=== PATIENT | male | born 2005 | race Caucasian/White ===

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

== ENCOUNTER 2024-12-11 21:04 | Emergency (ER) | payer MEDICAID, OTHER ==
[~2024-12-11] VITALS: Ht 180.3 cm; Wt 64.5 kg
[~2024-12-11 21:04] MED LIST: RISP-31 PO; SERT-439 PO
[2024-12-11 21:18] VITALS: BP 102/57; PULSE 92; RESP 14; TEMP 98; O2SAT 100
== END 2024-12-11 23:28 | disposition left against medical advice (07) ==
LOC: EMS 21:04
DX: R30.0 Dysuria (principal); Z53.21 Procedure and treatment not carried out due to patient leaving prior to being seen by health care provider

== ENCOUNTER 2025-08-20 00:23 | Emergency (ER) | payer OTHER ==
[~2025-08-20] VITALS: Ht 177.8 cm; Wt 64.5 kg
[2025-08-20 00:30] VITALS: BP 93/66; PULSE 85; RESP 16; TEMP 97.7; O2SAT 98
== END 2025-08-20 06:16 | disposition home or self-care (01) ==
LOC: EMS 00:23
DX: F10.129 Alcohol abuse with intoxication, unspecified (principal); R10.84 Generalized abdominal pain; J45.909 Unspecified asthma, uncomplicated; Z79.899 Other long term (current) drug therapy; Y90.9 Presence of alcohol in blood, level not specified
CPT/HCPCS: 99283; Z7502

== ENCOUNTER 2025-08-21 06:48 | Emergency (ER) | payer OTHER ==
[~2025-08-21] VITALS: Ht 180.3 cm; Wt 65.9 kg
[2025-08-21 06:59] VITALS: TEMP 97.9
[2025-08-21 09:04] LABS: PH,URINE DRUG SCREEN 7.0 (5.0-8.0)
[2025-08-21 09:09] LABS: ALCOHOL, URINE DRUG SCREEN NEGATIVE (NEGATIVE); AMPHET/METH SCREEN,URINE NEGATIVE (NEGATIVE); BARBITURATE SCREEN, URINE NEGATIVE (NEGATIVE); CANNABINOID SCREEN,URINE NEGATIVE (NEGATIVE); COCAINE SCREEN,URINE NEGATIVE (NEGATIVE); METHADONE SCREEN, URINE NEGATIVE (NEGATIVE)
[2025-08-21 11:05] VITALS: BP 100/70; PULSE 62; RESP 17; O2SAT 98
== END 2025-08-21 11:06 | disposition home or self-care (01) ==
LOC: EMS 06:49
DX: F12.10 Cannabis abuse, uncomplicated (principal); J45.909 Unspecified asthma, uncomplicated; Z00.00 Encounter for general adult medical examination without abnormal findings
CPT/HCPCS: 99283; 36415; 80307; G0480

== ENCOUNTER 2025-08-25 18:22 | Emergency (ER) | payer OTHER ==
[~2025-08-25] VITALS: Ht 170.2 cm; Wt 63.6 kg
[2025-08-25 19:05] VITALS: BP 111/74; PULSE 84; RESP 18; TEMP 97.9; O2SAT 100
[2025-08-25 21:34] LABS: COVID AG,FIA SOURCE NASAL SWAB
[2025-08-25 22:10] LABS: SARS-COV2 (COVID) ANTIGEN,FIA Negative (Negative)
== END 2025-08-25 23:40 | disposition left against medical advice (07) ==
LOC: EMS 18:22
DX: R44.0 Auditory hallucinations (principal); Z20.822 Contact with and (suspected) exposure to COVID-19; Z53.21 Procedure and treatment not carried out due to patient leaving prior to being seen by health care provider
CPT/HCPCS: 99281; Z7502